=== PATIENT | male | born 1975 | race African-American/Black ===

== ENCOUNTER 2016-11-07 21:34 | Emergency (ER) | payer MEDICAID ==
[~2016-11-07] VITALS: Ht 175.3 cm; Wt 99.8 kg
[2016-11-07 21:49] VITALS: BP 160/72
== END 2016-11-08 00:19 | disposition home or self-care (01) ==
LOC: ER 21:34
DX: S61.210A Laceration without foreign body of right index finger without damage to nail, initial encounter (principal); W45.8XXA Other foreign body or object entering through skin, initial encounter; Y93.89 Activity, other specified; Y99.0 Civilian activity done for income or pay; Y92.89 Other specified places as the place of occurrence of the external cause

== ENCOUNTER 2018-04-04 21:28 | Emergency (ER) | payer MEDICAID ==
[~2018-04-04] VITALS: Ht 172.7 cm; Wt 83.9 kg
[2018-04-04 21:55] VITALS: BP 187/92
[2018-04-04 23:12] LABS: Amphetamine Screen, Urine POSITIVE (NEGATIVE); Barbiturate Scree,Urine NEGATIVE (NEGATIVE); Benzodiazephine Screen, Urine NEGATIVE (NEGATIVE); Cannabinoid Screen, Urine NEGATIVE (NEGATIVE); Cocaine Screen, Urine NEGATIVE (NEGATIVE); Opiate Scree,Urine NEGATIVE (NEGATIVE); Phencyclidine Screen, Urine NEGATIVE (NEGATIVE)
== END 2018-04-05 01:49 | disposition left against medical advice (07) ==
LOC: ER 21:31
DX: R06.02 Shortness of breath (principal); F15.10 Other stimulant abuse, uncomplicated; Z53.21 Procedure and treatment not carried out due to patient leaving prior to being seen by health care provider
CPT/HCPCS: 80307; 93005